=== PATIENT | female | born 1930 | race Caucasian/White ===

== ENCOUNTER → 2016-10-06 | Outpatient (CLI) | payer OTHER ==
[~2016-10-06] MED LIST: ACET-1311 PO; ASCA500 PO; ASPEC81 PO; ATEN-175 PO; ATOR-26 PO; CMD2 PO; CMD25 PO; FLAX SEED PO; HYDC25 PO; TERA1CAP63 PO; VITA100C4 PO
[2016-10-06 12:41] LABS: BASO % 0.4 %; BASO ABS # 0.02 K/uL (0-0.2); COMPLETE YES; EOS % 2.2 %; HEMATOCRIT 36.7 % (37-47); IG% 0.2 %; LYMPH % 28.4 %; LYMPH ABS # 1.43 K/uL (1.2-3.4); MEAN CELL VOLUME 90.2 fL (80-100); MEAN CORPUSCULAR HGB CONC 33.2 g/dl (32-36); MEAN PLATELET VOLUME 10.5 fL (7.4-10.4); MONO % 7.7 %; NEUT % 61.1 %; PLATELET COUNT 146 K/uL (130-400); RED BLOOD COUNT 4.07 M/uL (4.2-5.4); WHITE BLOOD COUNT 5.04 K/uL (4.8-10.8)
[2016-10-06 12:46] LABS: INR 2.4 (0.9-1.1)
[2016-10-06 13:22] LABS: CHOLESTEROL/HDL RATIO 2.4; THYROID STIMULATING HORMONE 1.31 uIu/ml (0.300-4.500)
[2016-10-06 13:24] LABS: ESTIMATED AVERAGE GLUCOSE 128 mg/dl; HA1C FLAG Normal (Normal)
--- NOTE | 2016-10-10 13:23 | CODING QUERY MEDICAL NECESSITY ---
SUPPORTING DIAGNOSIS NEEDED Dr. Devlin, A supporting diagnosis is required for the test/procedure performed on this patient in order for us to be reimbursed by the patient's insurance. Please provide a supporting diagnosis for the following test/procedure listed below next to the test name along with your signature. *If there is no additional diagnosis for this patient that would support the following test/procedure please document that below next to the test/procedure. Test(s)/Procedure(s) that require a supporting diagnosis: * ([id number]) VITAMIN D ASSAY DIAGNOSIS: DATE OF SERVICE: 10/06/16 Provider Signature: Date: Thank you Jessee Cordova [facility] Information Management Once completed, please kindly fax back to [phone] For questions please call [phone]
== END | disposition home or self-care (01) ==
LOC: C.LABPVFM 08:39
PROVIDERS: ATTEND Family Medicine
DX: Z00.00 Encounter for general adult medical examination without abnormal findings (principal); I10 Essential (primary) hypertension; R73.01 Impaired fasting glucose; I25.10 Atherosclerotic heart disease of native coronary artery without angina pectoris; I66.9 Occlusion and stenosis of unspecified cerebral artery; E55.9 Vitamin D deficiency, unspecified

== ENCOUNTER → 2017-04-20 | Outpatient (CLI) | payer OTHER ==
[2017-04-20 13:15] LABS: ALT/SGPT 35 U/L (12-78); AST/SGOT 27 U/L (15-37); BLOOD UREA NITROGEN 24 mg/dl (7-18); BUN/CREATININE RATIO 24.7 (10-20); CALCIUM 8.9 mg/dl (8.5-10.1); CARBON DIOXIDE 27 mmol/L (21-32); CHLORIDE 105 mmol/L (98-107); CREATININE 0.97 mg/dl (0.60-1.20); GLUCOSE 93 mg/dl (70-99); POTASSIUM 4.1 mmol/L (3.5-5.1); SODIUM 140 mmol/L (136-145)
[2017-04-20 13:18] LABS: ALB/GLOB RATIO 1.2 (0.9-2); ALKALINE PHOSPHATASE 84 U/L (45-117); CHOLESTEROL 127 mg/dl (0-200); CHOLESTEROL/HDL RATIO 2.4; HDL CHOLESTEROL 53 mg/dl; LDL CHOLESTEROL CALCULATED 49 mg/dl; TRIGLYCERIDES 125 mg/dl (0-150); VERY LOW DENSITY LIPOPROT CALC 25 mg/dl
[2017-04-20 13:34] LABS: ESTIMATED AVERAGE GLUCOSE 128 mg/dl; HA1C FLAG Normal (Normal)
--- NOTE | 2017-04-24 13:57 | CODING QUERY MEDICAL NECESSITY ---
SUPPORTING DIAGNOSIS NEEDED A supporting diagnosis is required for the test/procedure performed on this patient in order for us to be reimbursed by the patient's insurance. Please provide a supporting diagnosis for the following test/procedure listed below next to the test name along with your signature. *If there is no additional diagnosis for this patient that would support the following test/procedure please document that below next to the test/procedure. Test(s)/Procedure(s) that require a supporting diagnosis: * HEMOGLOBIN A1C DIAGNOSIS: Provider Signature: Date: Thank you [facility] Information Management Once completed, please kindly fax back to [phone] For questions please call [phone]
== END | disposition home or self-care (01) ==
LOC: C.LABPVFM 08:16
PROVIDERS: ATTEND Family Medicine
DX: N30.10 Interstitial cystitis (chronic) without hematuria (principal); I10 Essential (primary) hypertension; E78.00 Pure hypercholesterolemia, unspecified; I73.9 Peripheral vascular disease, unspecified; I25.10 Atherosclerotic heart disease of native coronary artery without angina pectoris; R73.01 Impaired fasting glucose

== ENCOUNTER → 2017-09-08 | Outpatient (CLI) | payer OTHER ==
[2017-09-08 17:48] LABS: ALBUMIN 3.8 gm/dl (3.4-5.0); ALT/SGPT 27 U/L (12-78); AST/SGOT 24 U/L (15-37); BLOOD UREA NITROGEN 29 mg/dl (7-18); CALCIUM 8.7 mg/dl (8.5-10.1); CARBON DIOXIDE 26 mmol/L (21-32); CREATININE 1.09 mg/dl (0.60-1.20); GLUCOSE 99 mg/dl (70-99); SODIUM 138 mmol/L (136-145)
[2017-09-08 17:50] LABS: ALKALINE PHOSPHATASE 101 U/L (45-117)
== END | disposition home or self-care (01) ==
LOC: C.LABPVFM 14:24
PROVIDERS: ATTEND Family Medicine
DX: I10 Essential (primary) hypertension (principal); E78.00 Pure hypercholesterolemia, unspecified; R73.01 Impaired fasting glucose; Z79.01 Long term (current) use of anticoagulants; Z51.81 Encounter for therapeutic drug level monitoring; I73.9 Peripheral vascular disease, unspecified

== ENCOUNTER → 2017-10-20 | Outpatient (CLI) | payer OTHER ==
[2017-10-20 13:14] LABS: BLOOD UREA NITROGEN 23 mg/dl (7-18); CALCIUM 8.8 mg/dl (8.5-10.1); CARBON DIOXIDE 28 mmol/L (21-32); CREATININE 0.99 mg/dl (0.60-1.20); GLUCOSE 100 mg/dl (70-99); POTASSIUM 3.8 mmol/L (3.5-5.1); SODIUM 140 mmol/L (136-145)
[2017-10-20 13:35] LABS: HEMOGLOBIN A1C 6.1 % (4.5-5.6)
== END | disposition home or self-care (01) ==
LOC: C.LABPVFM 08:49
PROVIDERS: ATTEND Family Medicine
DX: I10 Essential (primary) hypertension (principal); R73.01 Impaired fasting glucose; E55.9 Vitamin D deficiency, unspecified

== ENCOUNTER → 2017-10-30 | Outpatient (CLI) | payer OTHER ==
[2017-10-30 12:40] LABS: INR 1.3 (0.9-1.1)
== END ==
LOC: C.LABPVFM 08:46
PROVIDERS: ATTEND Family Medicine
DX: E55.9 Vitamin D deficiency, unspecified (principal)

== ENCOUNTER → 2018-04-20 | Outpatient (CLI) | payer OTHER ==
[2018-04-20 12:55] LABS: HEMATOCRIT 38.3 % (37-47); HEMOGLOBIN 12.6 g/dL (12.0-16.0); MEAN CELL VOLUME 92.1 fL (80-100); MEAN CORPUSCULAR HEMOGLOBIN 30.3 pg (25-34); MEAN CORPUSCULAR HGB CONC 32.9 g/dl (32-36); MEAN PLATELET VOLUME 10.3 fL (7.4-10.4); PLATELET COUNT 141 K/uL (130-400); RED CELL DISTRIBUTION WIDTH CV 13.4 % (11.5-14.5); RED CELL DISTRIBUTION WIDTH SD 44.7 fL (36.4-46.3); WHITE BLOOD COUNT 5.88 K/uL (4.8-10.8)
[2018-04-20 13:54] LABS: ALKALINE PHOSPHATASE 80 U/L (45-117); ALT/SGPT 29 U/L (12-78); AST/SGOT 27 U/L (15-37); BLOOD UREA NITROGEN 30 mg/dl (7-18); CALCIUM 9.2 mg/dl (8.5-10.1); CARBON DIOXIDE 26 mmol/L (21-32); CHOLESTEROL 113 mg/dl (0-200); CREATININE 1.22 mg/dl (0.60-1.20); GLUCOSE 100 mg/dl (70-99); LDL CHOLESTEROL CALCULATED 49 mg/dl; POTASSIUM 4.1 mmol/L (3.5-5.1); SODIUM 140 mmol/L (136-145); TOTAL PROTEIN 7.1 gm/dl (6.4-8.2)
== END | disposition home or self-care (01) ==
LOC: C.LABPVFM 08:19
PROVIDERS: ATTEND Family Medicine
DX: E55.9 Vitamin D deficiency, unspecified (principal); E78.00 Pure hypercholesterolemia, unspecified; Z79.01 Long term (current) use of anticoagulants

== ENCOUNTER 2019-05-04 20:03 | Inpatient (IN) ==
[2019-05-04] MEDS ORDERED: LEVALBUTEROL HCL 1.25 MG/3 ML NEB NEB STA (21:11)
[2019-05-04] MEDS ORDERED: SODIUM CHLORIDE 0.9% 1000ML 1,000 ML IV SCH (21:15)
[2019-05-04 21:37] LABS: Basophils # (auto) 0.02 K/uL (0-0.2); Basophils % (auto) 0.2 %; Eosinophils # (auto) 0.03 K/uL (0-0.5); Eosinophils % (auto) 0.3 %; Hematocrit (blood only) 32.8 % (37-47); Immature Granulocytes # (auto) 0.01 K/uL (0.00-0.02); Immature Granulocytes % (auto) 0.1 %; Lymphocytes # (auto) 0.77 K/uL (1.2-3.4); Lymphocytes % (auto) 8.5 %; Mean Corpuscular Hgb Conc 33.5 g/dL (32-36); Mean Corpuscular Volume 90.1 fL (80-100); Mean Platelet Volume 9.4 fL (7.4-10.4); Monocytes # (auto) 0.81 K/uL (0.11-0.59); Monocytes % (auto) 8.9 %; Neutrophils # (auto) 7.46 K/uL (1.4-6.5); Platelet Count 141 K/uL (130-400); RDW Standard Deviation 42.4 fL (36.4-46.3); Red Blood Count 3.64 M/uL (4.2-5.4)
[2019-05-04 21:53] LABS: Albumin Level 3.4 gm/dl (3.4-5.0); BUN Creatinine Ratio 24.8 (10-20); Calcium 9.1 mg/dl (8.5-10.1); Creatinine Clr Calc Pharmacy 25.3 ml/min; Est GFR (African American) 42.1; Est GFR (Non-African American) 36.3; Potassium 3.9 mmol/L (3.5-5.1)
--- NOTE | 2019-05-04 21:55 | XRay Report ---
XR chest 1V portable CLINICAL HISTORY: weakness dyspnea COMPARISON STUDY: No previous studies for comparison. FINDINGS: Findings consistent with developing congestive failure. Mild cardiomegaly. Diaphragms are s mooth. IMPRESSION: Developing components of congestive heart failure. The above report was generated using voice recognition software. It may contain grammatical, syntax or spelling errors. Electronically signed by: Salazar DeJ esus M.D. 05/04/2019 9:54 PM
[2019-05-04 22:04] LABS: Bilirubin,Total 0.9 mg/dl (0.2-1); Globulin 3.4 gm/dl (2.5-4.0); Total Protein 6.8 gm/dl (6.4-8.2); Troponin I 0.02 ng/ml (0-0.045)
[2019-05-04] MEDS ORDERED: IOVERSOL 100ml IV PRN (22:36)
[2019-05-04 22:45] LABS: Appearance Urine Cloudy (Clear); Bacteria Urine Automated 2+ (Negative); Bilirubin Urine Negative (Negative); Blood Urine 2+ (Negative); Cast Urine Automated 0 /lpf (0-5); Color Urine Yellow; Epithelial Cell Urine Auto 0-5 /lpf (0-5); Glucose Urine UA Negative (Negative); Ketones Urine Negative (Negative); Leukocyte Esterase Urine 3+ (Negative); Nitrite Urine Positive (Negative); Protein Urine Trace (Negative); Specific Gravity Urine 1.014 (1.000-1.030); Urobilinogen Urine Negative (Negative); WBC Urine Automated >30 /hpf (0-5)
[2019-05-04] MEDS ORDERED: cefTRIAXone SODIUM 2,000 MG/70 ML BAG IV STA (22:57)
--- NOTE | 2019-05-04 22:57 | CT Scan Report ---
CT head/brain wo con CT DOSE: HISTORY: Mental status change Pt c/o gen weakness TECHNIQUE: Multiaxial CT images of the head were performed without the use of intravenous contrast. A dose lowering technique was utilized adhering to the principles of ALARA. Comparison: None. Findings: The paranasal sinuses and mastoid air cells are clear. The calvarium and skull base are int act. The ventricles and sulci are within normal limits. There is no mass, hematoma, midline shift, or acute infarct. Impression: No acute intracranial abnormality. The above report was generated using voice recognition software. It may contain grammatical, syntax or spelling errors. Electronically signed by: Salazar De Jesus M.D. 05/04/2019 10:55 PM
--- NOTE | 2019-05-04 23:00 | CT Scan Report ---
CT abd pelvis IV con only CT DOSE: 251.80 mGy.cm HISTORY: Pain Pt c/o b/l leg and abd pain TECHNIQUE: Multiaxial CT images of the abdomen and pelvis were performed following the use of intrave nous contrast. A dose lowering technique was utilized adhering to the principles of ALARA. COMPARISON STUDY: None. FINDINGS: Prominent bibasilar pulmonary vasculature and interstitial change. Liver spleen and pancrea s are unremarkable. Kidneys enhance uniformly. No evidence for renal hydronephrosis. Nonobstructive bowel pattern. Considerable atherosclerotic change of the abdominal and pelvic arteria l vasculature. Findings of mild chronic sigmoid diverticulosis. No evidence for acute diverticulitis. The bladder is midline. As on those made of several gallstones within the gallbladder lumen. IMPRESSION: 1. Chronic sigmoid diverticulosis. 2. Gallstones. 3. Otherwise negative abdomen and pelvis. 4. Prominent basilar pulmonary vasculature and interstitial change. The above report was generated using voice recognition software. It may contain grammatical, syntax or spelling errors. Electronically signed by: Salazar De Jesus M.D. 05/04/2019 10:59 PM
--- NOTE | 2019-05-04 23:59 | Emergency Department Note ---
Entered by Pat Gomez acting as a scribe for Leander Babb MD History of Present Illness General Chief complaint: Weakness Time Seen by Provider: 05/04/19 20:56 Source: patient and family Mode of arrival: EMS History of Present Illness Provider complaint: weakness Onset (ago): hour(s) 3 Location: lower extremity (both legs ) Pain Consistency: + other (episode ) Maximum Pain Intensity: 0 Quality: + other (shaky) Associated symptoms: + weakness and + other (pain in pelvis ) The patient is an 89 year old female presents to the ED with complaints of an episode of weakness that began 3 hours ago. The patient states her legs feel weak and she feels pain in her pelvis region. The patient states that her legs feel shaky. The patients family member states that she was going to take a shower and had to sit down. She states that another family member checked on her and discovered that she could not stand so they called EMS. She states that when they tried to bring the patent to the ED earlier but she was unbalanced. The patient states that she has a history of UTIs. The patient states that she never uses oxygen unless she is in the ED. The patient states that she had a vein put in leg because she had sores on her foot. She states that she had open heart surgery. Home Medications Home Medications Medication Instructions Recorded Confirmed Type atorvastatin 80 mg tablet 80 mg PO DAILY #90 tab 02/18/19 05/04/19 Rx acetaminophen 500 mg capsule 500 mg PO UD PRN cap 03/02/19 05/04/19 History conjugated estrogens 0.625 mg/gram 1 applic PV .2-3 NIGHTS WEEK #1 gm 03/02/19 05/04/19 History vaginal cream aspirin 325 mg tablet 325 mg PO DAILY #30 tab 04/18/19 05/04/19 History atenolol 100 mg tablet 100 mg PO QAM tab 04/18/19 05/04/19 History calcium 600 mg-D3 800 unit-mag11 1 tab PO DAILY 04/18/19 05/04/19 History 50 sv-jlba-owcpat-naimta-s.borat tablet hydrochlorothiazide 12.5 mg tablet 12.5 mg PO QAM tab 04/18/19 05/04/19 History mirabegron ER 50 mg 50 mg PO DAILY #90 tab 04/18/19 05/04/19 History tablet,extended release 24 hr terazosin 10 mg capsule 10 mg PO HS cap 04/18/19 05/04/19 History pentosan polysulfate sodium 100 mg PO DAILY 05/04/19 05/04/19 History [Elmiron] Allergies Allergy/AdvReac Type Severity Reaction Status Date / Time No Known Drug Allergies Allergy Unknown Verified 05/04/19 22:52 Past Med/Surg History Medical History Vitamin D deficiency (Chronic) PAD (peripheral artery disease) (Acute) Impaired fasting glucose (Chronic) Hypertension (Chronic) Hypercholesterolemia (Chronic) Chronic interstitial cystitis (Acute) Cerebral embolism (Acute) Carotid atherosclerosis (Chronic) CAD (coronary atherosclerotic disease) (Acute) Family History Other No significant family history Social History Feels Safe at Home: Yes Smoking Status: Never smoker Review of Systems See HPI for pertinent positives & negatives. and A total of 10 systems reviewed and were otherwise negative Physical Exam Vital Signs Vital Signs - 24 hr 05/04/19 20:09 05/04/19 20:11 05/04/19 20:13 Temperature 37.9 C H Temperature Source Oral Sepsis Recent Fever Within 48 Hours Yes Sepsis New/Unexplained Change in Mental Status No Sepsis Action Taken by Nursing No Action Required Pulse Rate 68 71 68 Pulse Rate [Finger] 71 Pulse Rate from SpO2 Sensor 70 73 Respiratory Rate 24 20 24 Respiratory Effort / Characteristics Blood Pressure 154/57 H 154/57 H Blood Pressure [Right Arm] 154/57 H Blood Pressure Mean 89 89 Blood Pressure Mean [Right Arm] 89 Pulse Oximetry 94 89 L 94 Oxygen Delivery Method Nasal Cannula Room Air Nasal Cannula Oxygen Flow Rate 2 2 05/04/19 20:20 05/04/19 20:30 05/04/19 20:40 Temperature Temperature Source Sepsis Recent Fever Within 48 Hours Sepsis New/Unexplained Change in Mental Status Sepsis Action Taken by Nursing Pulse Rate 72 68 62 Pulse Rate [Finger] Pulse Rate from SpO2 Sensor 75 68 70 Respiratory Rate 23 22 23 Respiratory Effort / Characteristics Blood Pressure 139/67 Blood Pressure [Right Arm] Blood Pressure Mean 91 Blood Pressure Mean [Right Arm] Pulse Oximetry 96 95 95 Oxygen Delivery Method Nasal Cannula Nasal Cannula Nasal Cannula Oxygen Flow Rate 2 2 2 05/04/19 20:50 05/04/19 21:00 05/04/19 21:10 Temperature Temperature Source Sepsis Recent Fever Within 48 Hours Sepsis New/Unexplained Change in Mental Status Sepsis Action Taken by Nursing Pulse Rate 69 70 71 Pulse Rate [Finger] Pulse Rate from SpO2 Sensor 73 70 75 Respiratory Rate 22 23 24 Respiratory Effort / Characteristics Blood Pressure 157/62 H Blood Pressure [Right Arm] Blood Pressure Mean 93 Blood Pressure Mean [Right Arm] Pulse Oximetry 92 95 94 Oxygen Delivery Method Nasal Cannula Nasal Cannula Nasal Cannula Oxygen Flow Rate 2 2 2 05/04/19 21:20 05/04/19 21:23 05/04/19 21:30 Temperature Temperature Source Sepsis Recent Fever Within 48 Hours Sepsis New/Unexplained Change in Mental Status Sepsis Action Taken by Nursing Pulse Rate 66 72 Pulse Rate [Finger] 70 Pulse Rate from SpO2 Sensor 66 72 Respiratory Rate 25 H 18 22 Respiratory Effort / Characteristics Non-Labored Spontaneous Blood Pressure 173/64 H Blood Pressure [Right Arm] Blood Pressure Mean 100 Blood Pressure Mean [Right Arm] Pulse Oximetry 95 97 96 Oxygen Delivery Method Nasal Cannula Nasal Cannula Nasal Cannula Oxygen Flow Rate 2 2 2 05/04/19 21:36 05/04/19 21:40 05/04/19 21:50 Temperature Temperature Source Sepsis Recent Fever Within 48 Hours Sepsis New/Unexplained Change in Mental Status Sepsis Action Taken by Nursing Pulse Rate 68 82 Pulse Rate [Finger] 71 Pulse Rate from SpO2 Sensor 68 73 Respiratory Rate 21 21 19 Respiratory Effort / Characteristics Blood Pressure Blood Pressure [Right Arm] 173/64 H Blood Pressure Mean Blood Pressure Mean [Right Arm] 100 Pulse Oximetry 95 96 96 Oxygen Delivery Method Nasal Cannula Nasal Cannula Nasal Cannula Oxygen Flow Rate 2 2 2 05/04/19 22:00 05/04/19 22:10 05/04/19 22:20 Temperature Temperature Source Sepsis Recent Fever Within 48 Hours Sepsis New/Unexplained Change in Mental Status Sepsis Action Taken by Nursing Pulse Rate 73 72 74 Pulse Rate [Finger] Pulse Rate from SpO2 Sensor 74 73 67 Respiratory Rate 20 20 21 Respiratory Effort / Characteristics Blood Pressure 168/65 H Blood Pressure [Right Arm] Blood Pressure Mean 99 Blood Pressure Mean [Right Arm] Pulse Oximetry 95 95 95 Oxygen Delivery Method Nasal Cannula Nasal Cannula Nasal Cannula Oxygen Flow Rate 2 2 2 05/04/19 22:30 05/04/19 22:51 05/04/19 23:00 Temperature Temperature Source Sepsis Recent Fever Within 48 Hours Sepsis New/Unexplained Change in Mental Status Sepsis Action Taken by Nursing Pulse Rate 77 80 71 Pulse Rate [Finger] Pulse Rate from SpO2 Sensor 71 80 71 Respiratory Rate 19 25 H 20 Respiratory Effort / Characteristics Blood Pressure 176/75 H Blood Pressure [Right Arm] Blood Pressure Mean 108 Blood Pressure Mean [Right Arm] Pulse Oximetry 97 95 95 Oxygen Delivery Method Nasal Cannula Nasal Cannula Nasal Cannula Oxygen Flow Rate 2 2 2 05/04/19 23:10 05/04/19 23:14 05/04/19 23:20 Temperature Temperature Source Sepsis Recent Fever Within 48 Hours Sepsis New/Unexplained Change in Mental Status Sepsis Action Taken by Nursing Pulse Rate 69 70 74 Pulse Rate [Finger] Pulse Rate from SpO2 Sensor 71 63 75 Respiratory Rate 20 20 22 Respiratory Effort / Characteristics Blood Pressure 175/63 H Blood Pressure [Right Arm] Blood Pressure Mean 100 Blood Pressure Mean [Right Arm] Pulse Oximetry 95 96 96 Oxygen Delivery Method Nasal Cannula Nasal Cannula Nasal Cannula Oxygen Flow Rate 2 2 2 05/04/19 23:30 05/04/19 23:40 Temperature Temperature Source Sepsis Recent Fever Within 48 Hours Sepsis New/Unexplained Change in Mental Status Sepsis Action Taken by Nursing Pulse Rate 75 74 Pulse Rate [Finger] Pulse Rate from SpO2 Sensor 70 73 Respiratory Rate 22 18 Respiratory Effort / Characteristics Blood Pressure 161/64 H Blood Pressure [Right Arm] Blood Pressure Mean 96 Blood Pressure Mean [Right Arm] Pulse Oximetry 94 96 Oxygen Delivery Method Nasal Cannula Nasal Cannula Oxygen Flow Rate 2 2 GENERAL: Awake, alert, well-appearing, in no acute distress HENT: Normocephalic, atraumatic. Oropharynx unremarkable. EYES: Normal conjunctiva. Sclera non-icteric. NECK: Supple. No nuchal rigidity. FROM. No JVD. RESPIRATORY: Clear to auscultation. CARDIAC: Regular rate, normal rhythm. Extremities warm and well perfused. Pulses equal. ABDOMEN: Soft, non-distended. No tenderness to palpation. No rebound or guarding. No masses. RECTAL: Deferred. MUSCULOSKELETAL: Chest examination reveals no tenderness. The back is symmetrical on inspection without obvious abnormality. There is no CVA tenderness to palpation. No joint edema. LOWER EXTREMITIES: Calves are equal size bilaterally and non-tender. No edema. No discoloration. NEURO: Normal sensorium. No sensory or motor deficits noted. SKIN: No rash or jaundice noted. Course 2104: Past medical records reviewed. The patient was evaluated in room B10. A complete history and physical exam was performed. Administered Medications Ioversol (Optiray 320 100ml) 93 ml IV ONCE PRN PRN Reason: Interaction Checking Stop: 05/08/19 22:35 Last Admin: 05/04/19 22:36 Dose: 93 ml Documented by: [id number] Discontinued Medications Sodium Chloride (Nss 1000ml) 1,000 mls @ 999 mls/hr IV .Q1H1M [id number] Stop: 05/04/19 22:15 Last Infusion: 05/04/19 22:38 Dose: 0 mls/hr Documented by: [id number] Admin: 05/04/19 21:37 Dose: 999 mls/hr Documented by: [id number] Ceftriaxone Sodium (Rocephin) 2,000 mg in 70 mls @ 140 mls/hr IV NOW STA Stop: 05/04/19 23:26 Last Infusion: 05/04/19 23:45 Dose: 0 mls/hr Documented by: [id number] Admin: 05/04/19 23:13 Dose: 140 mls/hr Documented by: [id number] Levalbuterol HCl (Xopenex 1.25mg/3ml Neb) 1.25 mg NEB NOW STA Stop: 05/04/19 21:12 Last Admin: 05/04/19 21:22 Dose: 1.25 mg Documented by: [id number] Medical Decision Making Differential Diagnosis Differential Diagnosis includes but is not limited to dehydration, stroke, anemia, hypoglycemia, hyponatremia, hypernatremia, urinary tract infection, pneumonia, bronchitis, sepsis, gastroenteritis, additional abdominal pathology, metabolic abnormalities and infections. Medical Records Attestation: I reviewed the patient's medical records. Home Medications Current Medication List: was personally reviewed by me Laboratory Data Attestation: I reviewed the patient's lab results. Result diagrams: 05/04/19 21:30 05/04/19 21:30 Lab Results 05/04/19 05/04/19 05/04/19 Range/Units 21:30 21:30 22:35 WBC 9.10 (4.8-10.8) K/uL RBC 3.64 L (4.2-5.4) M/uL Hgb 11.0 L (12.0-16.0) g/dL Hct 32.8 L (37-47) % MCV 90.1 (80-100) fL MCH 30.2 (25-34) pg MCHC 33.5 (32-36) g/dL RDW Std Deviation 42.4 (36.4-46.3) fL RDW Coeff of Uriel 13.0 (11.5-14.5) % Plt Count 141 (130-400) K/uL MPV 9.4 (7.4-10.4) fL Immature Gran % (Auto) 0.1 % Neut % (Auto) 82.0 % Lymph % (Auto) 8.5 % Sully % (Auto) 8.9 % Eos % (Auto) 0.3 % Baso % (Auto) 0.2 % Immature Gran # (Auto) 0.01 (0.00-0.02) K/uL Neut # (Auto) 7.46 H (1.4-6.5) K/uL Lymph # (Auto) 0.77 L (1.2-3.4) K/uL Sully # (Auto) 0.81 H (0.11-0.59) K/uL Eos # (Auto) 0.03 (0-0.5) K/uL Baso # (Auto) 0.02 (0-0.2) K/uL Sodium 137 (136-145) mmol/L Potassium 3.9 (3.5-5.1) mmol/L Chloride 103 (98-107) mmol/L Carbon Dioxide 27 (21-32) mmol/L Anion Gap 7.0 (3-11) BUN 32 H (7-18) mg/dl Creatinine 1.30 H (0.6-1.2) mg/dl Est Cr Clr Drug Dosing 25.3 ml/min Est GFR ( Amer) 42.1 Est GFR (Non-Af Amer) 36.3 BUN/Creatinine Ratio 24.8 H (10-20) Glucose 134 H (70-99) mg/dl Calcium 9.1 (8.5-10.1) mg/dl Total Bilirubin 0.9 (0.2-1) mg/dl AST 28 (15-37) U/L ALT 22 (12-78) U/L Alkaline Phosphatase 60 (45-117) U/L Total Creatine Kinase 495 H (26-192) U/L Troponin I 0.020 (0-0.045) ng/ml NT-Pro-B Natriuret Pep 5961 H (0-1800) pg/ml Total Protein 6.8 (6.4-8.2) gm/dl Albumin 3.4 (3.4-5.0) gm/dl Globulin 3.4 (2.5-4.0) gm/dl Albumin/Globulin Ratio 1.0 (0.9-2) TSH 1.170 (0.300-4.500) uIu/ml Urine Color Yellow Urine Appearance Cloudy A (Clear) Urine pH 6.0 (4.5-7.5) Ur Specific [place] 1.014 (1.000-1.030) Urine Protein Trace H (Negative) Urine Glucose (UA) Negative (Negative) Urine Ketones Negative (Negative) Urine Blood 2+ H (Negative) Urine Nitrite Positive A (Negative) Urine Bilirubin Negative (Negative) Urine Urobilinogen Negative (Negative) Ur Leukocyte Esterase 3+ H (Negative) Urine WBC (Auto) >30 H (0-5) /hpf Urine RBC (Auto) 5-10 H (0-4) /hpf U Hyaline Cast (Auto) 0 (0-5) /lpf U Epithel Cells (Auto) 0-5 (0-5) /lpf Urine Bacteria (Auto) 2+ H (Negative) Imaging Data Radiologist's Impression: Radiology results as stated below per my review and the radiologist's interpretation: XR chest 1V portable CLINICAL HISTORY: weakness dyspnea COMPARISON STUDY: No previous studies for comparison. FINDINGS: Findings consistent with developing congestive failure. Mild cardiomegaly. Diaphragms are smooth. IMPRESSION: Developing components of congestive heart failure. The above report was generated using voice recognition software. It may contain grammatical, syntax or spelling errors. Electronically signed by: Salazar De Jesus M.D. 05/04/2019 9:54 PM T head/brain wo con CT DOSE: HISTORY: Mental status change Pt c/o gen weakness TECHNIQUE: Multiaxial CT images of the head were performed without the use of intravenous contrast. A dose lowering technique was utilized adhering to the principles of ALARA. Comparison: None. Findings: The paranasal sinuses and mastoid air cells are clear. The calvarium and skull base are intact. The ventricles and sulci are within normal limits. There is no mass, hematoma, midline shift, or acute infarct. Impression: No acute intracranial abnormality. The above report was generated using voice recognition software. It may contain grammatical, syntax or spelling errors. Electronically signed by: Salazar De Jesus M.D. 05/04/2019 10:55 PM Dictated: 05/04/192253 Transcribed: 05/04/192253 [place], [place] [phone] CT Scan Report Patient: LUIS ESTEVES Date: 05/04/19 MR#: [id number] [address] Acct ID:[id number]: Date: 1930City Zip: [place] [address] Age: 89Location: ED Sex: F Room/Bed: Att Phy: Diagnosis: WEAKNESS Jo-Ann Phy: Milli Pozo MDService Date: 05/04/19 Fam Phy: Interpreting Phy: Salazar De Jesus MD Admit Phy: Ordering Phy: Leander Babb MD cc: ~ CT abd pelvis IV con only CT DOSE: 251.80 mGy.cm HISTORY: Pain Pt c/o b/l leg and abd pain TECHNIQUE: Multiaxial CT images of the abdomen and pelvis were performed following the use of intravenous contrast. A dose lowering technique was utilized adhering to the principles of ALARA. COMPARISON STUDY: None. FINDINGS: Prominent bibasilar pulmonary vasculature and interstitial change. Liver spleen and pancreas are unremarkable. Kidneys enhance uniformly. No evidence for renal hydronephrosis. Nonobstructive bowel pattern. Considerable atherosclerotic change of the abdominal and pelvic arterial vasculature. Findings of mild chronic sigmoid diverticulosis. No evidence for acute diverticulitis. The bladder is midline. As on those made of several gallstones within the gallbladder lumen. IMPRESSION: 1. Chronic sigmoid diverticulosis. 2. Gallstones. 3. Otherwise negative abdomen and pelvis. 4. Prominent basilar pulmonary vasculature and interstitial change. The above report was generated using voice recognition software. It may contain grammatical, syntax or spelling errors. Electronically signed by: Salazar De Jesus M.D. 05/04/2019 10:59 PM Dictated: 05/04/192254 Transcribed: 05/04/192254 ECG Data Attestation: I personally reviewed and interpreted this ECG as follows: Indication: weakness Rate (beats per minute): 72 Rhythm: sinus rhythm Findings: no ST depression, no ST elevation and no acute ischemic change Blood Pressure Blood Pressure Findings: Elevated blood pressure MDM Narrative This is an 89-year-old female who presents emergency department complaining of generalized weakness. The patient appears to have a urinary tract infection per her laboratory work. Her chest x-ray is concerning for volume overload. She was also sent for CAT scan of the head as well as abdomen and pelvis. This does not show any acute process. Patient was started on IV Rocephin and given a normal saline bolus. Because of her multiple comorbidities I did discuss case with the hospitalist service who agreed to admit the patient. Patient and family were in agreement with the treatment plan Impression & Plan Dehydration, Weakness, Acute UTI Discharge Plan Visit Data Chief Complaint: Weakness ED Provider: Leander Babb Discharge Problem: Dehydration, Weakness, Acute UTI Forms Stand Alone Forms: My [facility] Prescriptions Prescriptions: No Action atorvastatin 80 mg tablet 80 mg PO DAILY Qty: 90 RF: 1 acetaminophen 500 mg capsule 500 mg PO UD PRN (Reason: Pain) RF: 0 Premarin 0.625 mg/gram cream 1 applic PV .2-3 NIGHTS WEEK Qty: 1 RF: 0 aspirin 325 mg tablet 325 mg PO DAILY Qty: 30 RF: 0 atenolol 100 mg tablet 100 mg PO QAM RF: 0 hydrochlorothiazide 12.5 mg tablet 12.5 mg PO QAM RF: 0 mirabegron 50 mg tablet extended release 24 hr 50 mg PO DAILY Qty: 90 RF: 0 terazosin 10 mg capsule 10 mg PO HS RF: 0 Caltrate 600-D Plus Minerals 600 mg calcium- 800 unit-50 mg tablet 1 tab PO DAILY RF: 0 Elmiron 100 mg Capsule 100 mg PO DAILY RF: 0 The scribe's documentation has been prepared under my direction and personally reviewed by me in its entirety. I confirm that the note above accurately reflects all work, treatment, procedures, and medical decision making performed by me.
--- NOTE | 2019-05-05 00:59 | History & Physical Report ---
Date of Service May 05, 2019 Assessment & Plan (1) Bilateral leg weakness: 89-year-old female was admitted on 05 May 2019 for transient bilateral lower extremity weakness and present hypoxia. Bilateral lower extremity weakness: Reportedly relatively quick onset around dinnertime on evening of admit. Presently has completely resolved. Patient denies concurrent focal neuro symptoms suggestive of a TIA. Denies current urinary symptoms and has a non-tender abdomen. Question of a UTI causing this, though all these labs may be more consistent with her chronic interstitial cystitis. - In ED, temp 37.9, not tachycardic or tachypneic, but moderately hypertensive. WBC 9. Troponin 0.02. EKG NSR 72 with PACs. TSH normal. UA positive for nitrites, WBCs, and less so RBC. Urine culture sent. CT head without acute abnormality. CT a/p IV contrast only noted no acute findings. - In ED, treated with 1 L NS IVF and ceftriaxone 2 gm x 1. - As a precaution, will continue on ceftriaxone 1 gm daily while pending urine culture results. Hypoxia: Patient denies any baseline CP or SOB, both with exertion and at rest, or any known underlying pulmonary disease. In the ED, however, desats to 89% on room air. Does not seem like acute CHF. 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 - ED work-up included SpO2 around 95% on 2 L nasal cannula. BNP 5961. pCXR read as developing components of CHF. Treated with a single round of Xopenex. - Will get a non-contrast CT of her chest (given her prior contrast from earlier CT scans). Consult pulmonology as well. Keep on nasal cannula oxygen for goal SpO2 over 92%. Anemia: Admit hemoglobin 11.0. Only comparison is 12.6 earlier in the month. No reports of bleeding. - Recheck in the morning. Elevated creatinine: Admit creatinine 1.3, BUN 32. Only comparison 1.2 earlier in the month. Perhaps a bit pre-renal. Provided some IVF in the ED. - Will maintain on small amount of IVF and recheck in a.m. Elevated creatinine kinase: Admit CK 495. No noted falls, immobility, but she does get an occasional "charley horse" in her legs which is not new. - Given IVF. Recheck in a.m. Incidental CT a/p findings (see full report): - Chronic sigmoid diverticulosis. - Gallstones. - Prominent basilar pulmonary vasculature and interstitial change. Ongoing medical issues: - Hypertension, hyperlipidemia, CAD, carotid atherosclerosis, lower extremity PAD: Continue home atenolol, atorvastatin, hydrochlorothiazide, and aspirin. Patient was briefly seen on Coumadin but says she "got tired of it". No mention of need for Coumadin in last available outpatient medical record. - Impaired fasting glucose: Last HbA1c was 6.1 in April 2019. Admit glucose 134. Will recheck with morning BMP. - Vitamin D deficiency: Continue home Caltrate with vitamin D. - Chronic interstitial cystitis: Continue home Elmiron, terazosin, and mirabegron ER. Code status: Full code. Diet: Heart healthy. DVT prophy: Lovenox. PT/OT: Deferred. Disbo: Admit to MedSurg telemetry. (2) Hypoxia: (3) Anemia: (4) Elevated serum creatinine: (5) Elevated creatine kinase: (6) Diverticulosis: (7) Gallstones: (8) Hypertension: (9) Hypercholesterolemia: (10) CAD (coronary atherosclerotic disease): (11) Carotid atherosclerosis: (12) PAD (peripheral artery disease): (13) Impaired fasting glucose: (14) Vitamin D deficiency: (15) Chronic interstitial cystitis: History of Present Illness Primary Care Provider: Milli Pozo MD 89-year-old female presents with her and other family members this evening due to an episode of transient weakness. Patient states that she had a completely normal morning without any symptoms. Around dinnertime she acutely felt like her legs were weak and that she had some discomfort around her pelvis. Her family members went to check on her and noted that she was not able to stand, so they called EMS. Patient says she never fell down, felt dizzy, had a headache or lightheadedness, or had any difficulty with other motor function such as arm movement or speaking or swallowing. During this H&P, patient stated that she had a "charley horse" in her right upper leg but that she gets those frequently. By the end of the exam, this had resolved. At present, she says her leg weakness has completely resolved. She says she feels like she is back at her baseline, specifically denying any acute pains / weakness / discomfort anywhere. On review of systems, patient says that her mouth feels a little dry but that she does try to get enough fluids throughout the day. Recent fevers or feeling of illness, nausea or vomiting or diarrhea, or any difficulty breathing. When asked why she needs oxygen at present, she says she is unsure and that she has no history of any known pulmonary disease. 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 She denies any chest pain or shortness of breath at rest or with exertion, including walking upstairs. She has a known history of chronic interstitial cystitis for which she takes routine medications. She says her only complaint is that she will often have to get up to urinate 3-4 times per night but this is nothing new. She denies any dysuria, no hematuria, or present pelvic discomfort/pain. - Past medical history includes hypertension, hyperlipidemia, CAD, carotid atherosclerosis, vitamin D deficiency, lower extremity peripheral artery disease, chronic interstitial cystitis, cerebral embolism, arthritis, asymptomatic cholelithiasis. - Past surgical history includes (per record) aorto-coronary bypass. Patient states she also had vascular surgery to her left leg. - Social history includes never smoking. Denies alcohol use. Lives at home with her with family nearby. 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 Allergies Allergy/AdvReac Type Severity Reaction Status Date / Time No Known Drug Allergies Allergy Unknown Verified 05/04/19 22:52 Home Medications Home Medications Medication Instructions Recorded Confirmed Type atorvastatin 80 mg tablet 80 mg PO DAILY #90 tab 02/18/19 05/04/19 Rx acetaminophen 500 mg capsule 500 mg PO UD PRN cap 03/02/19 05/04/19 History conjugated estrogens 0.625 mg/gram 1 applic PV .2-3 NIGHTS WEEK #1 gm 03/02/19 05/04/19 History vaginal cream aspirin 325 mg tablet 325 mg PO DAILY #30 tab 04/18/19 05/04/19 History atenolol 100 mg tablet 100 mg PO QAM tab 04/18/19 05/04/19 History calcium 600 mg-D3 800 unit-mag11 1 tab PO DAILY 04/18/19 05/04/19 History 50 xf-xzsu-pubkzv-namita-s.borat tablet hydrochlorothiazide 12.5 mg tablet 12.5 mg PO QAM tab 04/18/19 05/04/19 History mirabegron ER 50 mg 50 mg PO DAILY #90 tab 04/18/19 05/04/19 History tablet,extended release 24 hr terazosin 10 mg capsule 10 mg PO HS cap 04/18/19 05/04/19 History pentosan polysulfate sodium 100 mg PO DAILY 05/04/19 05/04/19 History [Elmiron] Past Med/Surg History Medical History Vitamin D deficiency (Chronic) PAD (peripheral artery disease) (Acute) Impaired fasting glucose (Chronic) Hypertension (Chronic) Hypercholesterolemia (Chronic) Chronic interstitial cystitis (Acute) Cerebral embolism (Acute) Carotid atherosclerosis (Chronic) CAD (coronary atherosclerotic disease) (Acute) Family History Other No significant family history Social History Preferred Language: Kinyarwanda Communication Ability: Effective Beaver Trapper Required: No Beliefs That Will Affect Care: None Current Living Situation: Spouse Current Living Situation Comment: [place] with spouse Other Information That Helps Us Care for You: No Feels Safe at Home: Yes Safety Concerns: Feels Safe At This Time Smoking Status: Never smoker Do You Dip or Chew Tobacco: No ; Second Hand Exposure: No ; Tobacco Cessation Education Requested by Patient: No Hx Alcohol Use: No Hx Substance Use: No Review of Systems Review of Systems: Constitutional: Denies fevers, chills. Eyes: Denies any visual loss or diplopia ENT: Denies any ear/nose/throat pain or difficulty speaking or swallowing Respiratory: Denies any dyspnea, cough, hemoptysis Cardiovascular: Denies any chest pain or feeling of edema Gastrointestinal: Denies any abdominal pain, nausea/vomiting/diarrhea Musculoskeletal: Positive transient bilateral lower extremity weakness, now resolved. Denies difficulty with extremity movement or distal sensation deficits. Skin: Denies any known acute rashes or lesions Neuro: Denies any headache, blurry vision, or difficulties with speech or swallow. Hematologic: Denies any easy bleeding or bruising Physical Exam Physical Exam: GENERAL: Awake, alert, well-appearing and quite feisty, speaking in full sentences easily, in no acute distress HENT: Normocephalic, atraumatic. Oropharynx mildly dry. EYES: Normal conjunctiva. Sclera non-icteric. NECK: Inspection normal. Supple and full ROM. No nuchal rigidity. CARDIAC: +S1S2 RRR, no murmurs. RESPIRATORY: Clear to auscultation. No wheezes or rales. Normal respiratory effort. Nasal cannula oxygen in place. GI: +BS, soft, non-distended. No tenderness to palpation. No rebound or guarding. EXTREMITIES: No pedal edema or calf tenderness. Moving all extremities naturally and easily. Strength 5/5 on foot dorsi and plantar flexion. No difficulty with maintaining straight leg raise against resistance in both legs. NEURO: No gross neuro deficits. Results & Data Vital Signs (Past 12 Hours) Vital Signs Temp Pulse Pulse Resp BP BP Pulse Ox 05/05/19 00:25 71 19 183/67 H 93 05/04/19 23:40 74 18 96 05/04/19 23:30 75 22 161/64 H 94 05/04/19 23:20 74 22 96 05/04/19 23:14 70 20 175/63 H 96 05/04/19 23:10 69 20 95 05/04/19 23:00 71 20 95 05/04/19 22:51 80 25 H 95 05/04/19 22:30 77 19 176/75 H 97 05/04/19 22:20 74 21 95 05/04/19 22:10 72 20 95 05/04/19 22:00 73 20 168/65 H 95 05/04/19 21:50 82 19 96 05/04/19 21:40 68 21 96 05/04/19 21:36 71 21 173/64 H 95 05/04/19 21:30 72 22 173/64 H 96 05/04/19 21:23 70 18 97 05/04/19 21:20 66 25 H 95 05/04/19 21:10 71 24 94 05/04/19 21:00 70 23 157/62 H 95 05/04/19 20:50 69 22 92 05/04/19 20:40 62 23 95 05/04/19 20:30 68 22 139/67 95 05/04/19 20:20 72 23 96 05/04/19 20:13 68 24 94 05/04/19 20:11 37.9 C H 71 71 20 154/57 H 154/57 H 89 L 05/04/19 20:09 68 24 154/57 H 94 Laboratory Results 05/04/19 05/04/19 05/04/19 Range/Units 22:35 21:30 21:30 WBC 9.10 (4.8-10.8) K/uL RBC 3.64 L (4.2-5.4) M/uL Hgb 11.0 L (12.0-16.0) g/dL Hct 32.8 L (37-47) % MCV 90.1 (80-100) fL MCH 30.2 (25-34) pg MCHC 33.5 (32-36) g/dL RDW Std Deviation 42.4 (36.4-46.3) fL RDW Coeff of Uriel 13.0 (11.5-14.5) % Plt Count 141 (130-400) K/uL MPV 9.4 (7.4-10.4) fL Immature Gran % (Auto) 0.1 % Neut % (Auto) 82.0 % Lymph % (Auto) 8.5 % [place] % (Auto) 8.9 % Eos % (Auto) 0.3 % Baso % (Auto) 0.2 % Immature Gran # (Auto) 0.01 (0.00-0.02) K/uL Neut # (Auto) 7.46 H (1.4-6.5) K/uL Lymph # (Auto) 0.77 L (1.2-3.4) K/uL [place] # (Auto) 0.81 H (0.11-0.59) K/uL Eos # (Auto) 0.03 (0-0.5) K/uL Baso # (Auto) 0.02 (0-0.2) K/uL Sodium 137 (136-145) mmol/L Potassium 3.9 (3.5-5.1) mmol/L Chloride 103 (98-107) mmol/L Carbon Dioxide 27 (21-32) mmol/L Anion Gap 7.0 (3-11) BUN 32 H (7-18) mg/dl Creatinine 1.30 H (0.6-1.2) mg/dl Est Cr Clr Drug Dosing 25.3 ml/min Est GFR ( Amer) 42.1 Est GFR (Non-Af Amer) 36.3 BUN/Creatinine Ratio 24.8 H (10-20) Glucose 134 H (70-99) mg/dl Calcium 9.1 (8.5-10.1) mg/dl Total Bilirubin 0.9 (0.2-1) mg/dl AST 28 (15-37) U/L ALT 22 (12-78) U/L Alkaline Phosphatase 60 (45-117) U/L Total Creatine Kinase 495 H (26-192) U/L Troponin I 0.020 (0-0.045) ng/ml NT-Pro-B Natriuret Pep 5961 H (0-1800) pg/ml Total Protein 6.8 (6.4-8.2) gm/dl Albumin 3.4 (3.4-5.0) gm/dl Globulin 3.4 (2.5-4.0) gm/dl Albumin/Globulin Ratio 1.0 (0.9-2) TSH 1.170 (0.300-4.500) uIu/ml Urine Color Yellow Urine Appearance Cloudy A (Clear) Urine pH 6.0 (4.5-7.5) Ur Specific [place] 1.014 (1.000-1.030) Urine Protein Trace H (Negative) Urine Glucose (UA) Negative (Negative) Urine Ketones Negative (Negative) Urine Blood 2+ H (Negative) Urine Nitrite Positive A (Negative) Urine Bilirubin Negative (Negative) Urine Urobilinogen Negative (Negative) Ur Leukocyte Esterase 3+ H (Negative) Urine WBC (Auto) >30 H (0-5) /hpf Urine RBC (Auto) 5-10 H (0-4) /hpf U Hyaline Cast (Auto) 0 (0-5) /lpf U Epithel Cells (Auto) 0-5 (0-5) /lpf Urine Bacteria (Auto) 2+ H (Negative) Medications Administered Ioversol (Optiray 320 100ml) 93 ml IV ONCE PRN PRN Reason: Interaction Checking Stop: 05/08/19 22:35 Last Admin: 05/04/19 22:36 Dose: 93 ml Documented by: [id number] Discontinued Medications Sodium Chloride (Nss 1000ml) 1,000 mls @ 999 mls/hr IV .Q1H1M [id number] Stop: 05/04/19 22:15 Last Infusion: 05/04/19 22:38 Dose: 0 mls/hr Documented by: [id number] Admin: 05/04/19 21:37 Dose: 999 mls/hr Documented by: [id number] Ceftriaxone Sodium (Rocephin) 2,000 mg in 70 mls @ 140 mls/hr IV NOW STA Stop: 05/04/19 23:26 Last Infusion: 05/04/19 23:45 Dose: 0 mls/hr Documented by: [id number] Admin: 05/04/19 23:13 Dose: 140 mls/hr Documented by: [id number] Levalbuterol HCl (Xopenex 1.25mg/3ml Neb) 1.25 mg NEB NOW STA Stop: 05/04/19 21:12 Last Admin: 05/04/19 21:22 Dose: 1.25 mg Documented by: [id number] Code Status & VTE Plan Code Status Full code VTE Prophylaxis Plan VTE Prophylaxis will be ordered: Yes Supervising Physician Co-Signing Physician Notes Attending addendum: I have physically seen this patient, have supervised the medical residents activities, and agree with the H&P unless as otherwise noted. Assessment and Plan: Resolved bilateral lower extremity generalized weakness- Sounds like more of a general weakness as opposed to neurologic event. UTI- Follow urine culture sensitivity. Continue ceftriaxone IV begun in the ED. Hypoxia- Likely combination of pulmonary fibrosis and overlying infection. Ceftriaxone IV and azithromycin IV. Remainder of orders and notations as noted. PG Care Time/CCT Total # of Minutes Spent Total Time Spent with Patient: Total time spent is greater than 50% in coordi nation of care (as documented) at patient's floor/unit and/or counseling patient: Resident Activity Tracking Resident Involvement: Resident Care Provided Care Provided: Adult Hospital Medicine
[2019-05-05] MEDS ORDERED: ONDANSETRON INJ 2 MG/ML 2 ML VIAL IV PRN (01:47)
[2019-05-05] MEDS ORDERED: ACETAMINOPHEN 500 MG TAB PO PRN (01:47)
[2019-05-05] MEDS: LACTATED RINGER'S 1,000 ML IV SCH ×2 (02:13→14:24)
[2019-05-05] MEDS ORDERED: AZITHROMYCIN 250 MG TAB PO ONE (05:17)
--- NOTE | 2019-05-05 05:23 | Progress Note ---
Date of Service May 05, 2019 As an interval update, received page that the patient had a short run of a junctional rhythm at 37 bpm. On the monitor she is currently in normal sinus rhythm at 70 bpm. She is also now febrile. Please see the overnight read for her CT chest. Multiple findings include diffuse opacities concerning for pneumonia vs chronic interstitial lung disease vs superimposed edema. Also some concerns about mediastinal and hilar lymphadenopathy along with distal esophageal wall thickening. Plan: Will add azithromycin daily (in addition to the current ceftriaxone) to cover for CAP. Mai Thapa, PGY3 Results & Data Vital Signs (Past 12 Hours) Vital Signs Temp Pulse Pulse Resp BP BP BP 05/05/19 03:07 38.5 C H 52 L 18 131/62 05/05/19 02:30 73 05/05/19 01:47 05/05/19 01:45 37.1 C 84 16 179/48 H 05/05/19 01:14 72 23 170/60 H 05/05/19 00:25 71 19 183/67 H 05/04/19 23:40 74 18 05/04/19 23:30 75 22 161/64 H 05/04/19 23:20 74 22 05/04/19 23:14 70 20 175/63 H 05/04/19 23:10 69 20 05/04/19 23:00 71 20 05/04/19 22:51 80 25 H 05/04/19 22:30 77 19 176/75 H 05/04/19 22:20 74 21 05/04/19 22:10 72 20 05/04/19 22:00 73 20 168/65 H 05/04/19 21:50 82 19 05/04/19 21:40 68 21 05/04/19 21:36 71 21 173/64 H 05/04/19 21:30 72 22 173/64 H 05/04/19 21:23 70 18 05/04/19 21:20 66 25 H 05/04/19 21:10 71 24 05/04/19 21:00 70 23 157/62 H 05/04/19 20:50 69 22 05/04/19 20:40 62 23 05/04/19 20:30 68 22 139/67 05/04/19 20:20 72 23 05/04/19 20:13 68 24 05/04/19 20:11 37.9 C H 71 71 20 154/57 H 154/57 H 05/04/19 20:09 68 24 154/57 H Pulse Ox Pulse Ox 05/05/19 03:07 95 05/05/19 02:30 05/05/19 01:47 95 05/05/19 01:45 95 05/05/19 01:14 95 05/05/19 00:25 93 05/04/19 23:40 96 05/04/19 23:30 94 05/04/19 23:20 96 05/04/19 23:14 96 05/04/19 23:10 95 05/04/19 23:00 95 05/04/19 22:51 95 05/04/19 22:30 97 05/04/19 22:20 95 05/04/19 22:10 95 05/04/19 22:00 95 05/04/19 21:50 96 05/04/19 21:40 96 05/04/19 21:36 95 05/04/19 21:30 96 05/04/19 21:23 97 05/04/19 21:20 95 05/04/19 21:10 94 05/04/19 21:00 95 05/04/19 20:50 92 05/04/19 20:40 95 05/04/19 20:30 95 05/04/19 20:20 96 05/04/19 20:13 94 05/04/19 20:11 89 L 05/04/19 20:09 94
--- NOTE | 2019-05-05 06:42 | CT Scan Report ---
CT chest wo con CLINICAL HISTORY: hypoxia.. ABNORMAL CHEST X-RAY COMPARISON STUDY: Chest x-ray dated 05/04/2019 CT DOSE: 378.76 mGy.cm TECHNIQUE: CT of the thorax was performed from the thoracic inlet to the lung bases. Images are revi ewed in the axial, sagittal, and coronal planes. IV contrast was not administered for this examinatio n. A dose lowering technique was utilized adhering to the principles of ALARA. FINDINGS: Thyroid: Imaged portions of the thyroid gland are normal in appearance. Thoracic aorta: There is dense calcification of the thoracic aorta. The ascending thoracic aorta leisa ures 35 mm the level of pulmonary artery. Heart: The heart is enlarged with coronary artery calcifications. There is trace pericardial fluid. T here is enlargement of the pulmonary artery suggesting pulmonary arterial hypertension. Lungs and pleural spaces: There is septal edema. There is no lobar consolidation. There are patchy no dular airspace opacities, likely atelectatic or sales representative electric service of focal edema. Mediastinum: There are multiple enlarged mediastinal lymph nodes. An index precarinal lymph node leisa ures 16 mm. Анна: Difficult to assess on a noncontrast study, but hilar lymph node enlargement is suspected Axilla: There is no evidence of pathologic axillary lymphadenopathy Upper abdomen: Extensive vascular calcification. There is distal esophageal wall thickening. Skeletal structures: There are no lytic or blastic osseous lesions. IMPRESSION: 1. Septal thickening with patchy groundglass nodular airspace opacities. The findings likely represen t interstitial pulmonary edema although interstitial pneumonitis could appear similar 2. Distal esophageal wall thickening 3. Mediastinal lymphadenopathy 4. Suspected pulmonary arterial hypertension Electronically signed by: Guanaco Rayo M.D. 05/05/2019 6:40 AM
[2019-05-05 07:36] LABS: Basophils # (auto) 0.02 K/uL (0-0.2); Basophils % (auto) 0.2 %; Eosinophils # (auto) 0.01 K/uL (0-0.5); Eosinophils % (auto) 0.1 %; Hematocrit (blood only) 30.3 % (37-47); Hemoglobin 10.2 g/dL (12.0-16.0); Immature Granulocytes # (auto) 0.01 K/uL (0.00-0.02); Immature Granulocytes % (auto) 0.1 %; Lymphocytes % (auto) 9.6 %; Mean Corpuscular Hgb Conc 33.7 g/dL (32-36); Mean Corpuscular Volume 89.9 fL (80-100); Mean Platelet Volume 9.9 fL (7.4-10.4); Monocytes # (auto) 1.45 K/uL (0.11-0.59); Monocytes % (auto) 15.5 %; Neutrophils # (auto) 6.98 K/uL (1.4-6.5); Neutrophils % (auto) 74.5 %; Platelet Count 149 K/uL (130-400); RDW Standard Deviation 42.8 fL (36.4-46.3); Red Blood Count 3.37 M/uL (4.2-5.4); White Blood Count 9.37 K/uL (4.8-10.8)
[2019-05-05 07:48] LABS: INR 1.1 (0.9-1.1); Prothrombin Time 10.9 Seconds (9.0-12.0)
[2019-05-05 08:18] LABS: BUN Creatinine Ratio 24.2 (10-20); Calcium 8.2 mg/dl (8.5-10.1); Creatinine Clr Calc Pharmacy 25.8 ml/min; Est GFR (African American) 53.9; Est GFR (Non-African American) 46.5; Potassium 3.6 mmol/L (3.5-5.1)
[2019-05-05] MEDS: ENOXAPARIN INJ 30 MG/0.3 ML SYR SQ SCH (08:51)
[2019-05-05] MEDS: CALCIUM 600MG + VIT D 400 IU TAB PO SCH (08:51)
[2019-05-05] MEDS: PENTOSAN POLYSULFATE SODIUM 100 MG CAP PO SCH (08:51)
[2019-05-05] MEDS: MIRABEGRON ER 25 MG TAB PO SCH (08:55)
[2019-05-05] MEDS: hydroCHLOROthiazide 25 MG TAB PO SCH (08:56)
[2019-05-05] MEDS: ASPIRIN 325 MG ECTAB PO SCH (08:56)
[2019-05-05] MEDS: ATORVASTATIN 40 MG TAB PO SCH (08:56)
[2019-05-05] MEDS: ATENOLOL 50 MG TABLET PO SCH (08:57)
--- NOTE | 2019-05-05 15:49 | History & Physical Bridge Note ---
Date of Service May 05, 2019 History & Physical Bridge Note Patient seen and examined today. Reports she feels completely better. Denies shortness of breath, cough, weakness, or other complaints. Wants to go home, though I would like PT/OT mi first.
[2019-05-05] MEDS ORDERED: TERAZOSIN HCL 5 MG CAP PO SCH (21:00)
--- NOTE | 2019-05-05 21:13 | Pulmonary Consultation ---
Date of Consultation May 05, 2019 Assessment & Plan (1) Hypoxia: Her hypoxia is likely related to some degree of interstitial and alveolar infiltrates which are of unclear origin. She does carry a diagnosis of grade 1 diastolic dysfunction and some valvular issues from an echo in 2006. She has been persistently hypertensive here in the hospital with systolic blood pressures in the 170s to 180s. She likely does have worsening diastolic dysfunction and her hypoxia may be related to acute on chronic diastolic heart failure. Recommend repeating echocardiogram and continued diuresis. (2) Bilateral leg weakness: Her leg weakness may be related to urinary tract infection. Continue Rocephin Present on Admission?: Yes (3) Acute UTI: (4) Diastolic CHF, acute on chronic: Ordered echo. Consider diuresis. Present on Admission?: Yes History of Present Illness Attending Physician: She does appear to have a mild urinary tract infection based on the UA.Joe Guallpa MD 89-year-old female who presented to the emergency department secondary to a fall that she had from the steps. She says that her found her after she lost consciousness on the stairs. She does not recall exactly what happened. She denies any significant shortness of breath. She denies any cough. No family was present at the bedside to offer collaborate history. She said she just felt weak on the stairs and then could not remember what happened. She says this has not happened in the past. She really denies any pulmonary symptoms. 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 She is a lifelong non-smoker. She has had no recent sick contacts. She has not traveled outside the state in the last year. She denies any pets at present. 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 She does not know of any new medications that she may have started. She was found to be mildly hypoxemic to 80% on room air in the emergency department. This prompted a CT chest which demonstrated diffuse bilateral opacities with some mild mediastinal adenopathy. Her BNP was elevated to 5961. She had a fever of up to 101.3 today at 3 AM. She did not have a leukocytosis. She does appear to have a mild UTI based on the UA. Her urine culture is growing gram-negative rods. IgM admission with no evidence of ischemia. Echo from 2006 with grade 1 diastolic dysfunction, mild AR, mild MR and TR. Could not find any PFTs in the chart. Allergies Allergy/AdvReac Type Severity Reaction Status Date / Time No Known Drug Allergies Allergy Unknown Verified 05/04/19 22:52 Home Medications Home Medications Medication Instructions Recorded Confirmed Type atorvastatin 80 mg tablet 80 mg PO DAILY #90 tab 02/18/19 05/04/19 Rx acetaminophen 500 mg capsule 500 mg PO UD PRN cap 03/02/19 05/04/19 History conjugated estrogens 0.625 mg/gram 1 applic PV .2-3 NIGHTS WEEK #1 gm 03/02/19 05/04/19 History vaginal cream aspirin 325 mg tablet 325 mg PO DAILY #30 tab 04/18/19 05/04/19 History atenolol 100 mg tablet 100 mg PO QAM tab 04/18/19 05/04/19 History calcium 600 mg-D3 800 unit-mag11 1 tab PO DAILY 04/18/19 05/04/19 History 50 rf-hego-buqodt-namita-s.borat tablet hydrochlorothiazide 12.5 mg tablet 12.5 mg PO QAM tab 04/18/19 05/04/19 History mirabegron ER 50 mg 50 mg PO DAILY #90 tab 04/18/19 05/04/19 History tablet,extended release 24 hr terazosin 10 mg capsule 10 mg PO HS cap 04/18/19 05/04/19 History pentosan polysulfate sodium 100 mg PO DAILY 05/04/19 05/04/19 History [Elmiron] Patient History Medical History Vitamin D deficiency (Chronic) PAD (peripheral artery disease) (Acute) Impaired fasting glucose (Chronic) Hypertension (Chronic) Hypercholesterolemia (Chronic) Chronic interstitial cystitis (Acute) Cerebral embolism (Acute) Carotid atherosclerosis (Chronic) CAD (coronary atherosclerotic disease) (Acute) Family History Other No significant family history Social History Preferred Language: Korean Communication Ability: Effective 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 Required: No Beliefs That Will Affect Care: None Current Living Situation: Spouse Current Living Situation Comment: [place] farm with spouse Other Information That Helps Us Care for You: No Feels Safe at Home: Yes Safety Concerns: Feels Safe At This Time Smoking Status: Never smoker Do You Dip or Chew Tobacco: No ; Second Hand Exposure: No ; Tobacco Cessation Education Requested by Patient: No Hx Alcohol Use: No Hx Substance Use: No Review of Systems Review of Systems: All systems reviewed & are unremarkable except as noted in HPI & below Physical Exam Physical Exam: General: Very pleasant lady laying in bed with a nasal cannula on. Does not appear to be in any distress. HEENT: EOMI. Neck: Soft, supple. Trachea midline. Respiratory: Bilateral crackles, no increased respiratory effort. Vascular: Mild systolic flow murmur, 2 out of 6. Gastrointestinal: Soft, nontender MSK: Moves all extremities well Neurologic: No focal deficits seen. Psychiatric: Normal mood and affect Lymphatics: No obvious lymphadenopathy Results & Data Vital Signs (Past 12 Hours) Vital Signs Temp Pulse Pulse Resp BP Pulse Ox 05/05/19 19:57 99.7 F H 70 18 182/71 H 92 05/05/19 18:15 94 05/05/19 18:05 86 L 05/05/19 16:09 62 05/05/19 15:40 98.1 F 67 20 161/64 H 90 05/05/19 11:21 98.4 F 56 L 18 178/85 H 94 Laboratory Results 05/05/19 06:43 05/05/19 06:[address] chest reviewed. Bilateral parenchymal infiltrates noted with some nodularity. PG Care Time/CCT Total # of Minutes Spent Total Time Spent with Patient: Total time spent is greater than 50% in coordination of care (as documented) at patient's floor/unit and/or counseling patient:
[2019-05-06] MEDS: ATORVASTATIN 40 MG TAB PO SCH (08:46)
[2019-05-06] MEDS: ATENOLOL 50 MG TABLET PO SCH (08:46)
[2019-05-06] MEDS: ASPIRIN 325 MG ECTAB PO SCH (08:47)
[2019-05-06] MEDS: CALCIUM 600MG + VIT D 400 IU TAB PO SCH (08:47)
[2019-05-06] MEDS: PENTOSAN POLYSULFATE SODIUM 100 MG CAP PO SCH (08:47)
[2019-05-06] MEDS: MIRABEGRON ER 25 MG TAB PO SCH (08:47)
[2019-05-06] MEDS: hydroCHLOROthiazide 25 MG TAB PO SCH (08:48)
[2019-05-06] MEDS ORDERED: AZITHROMYCIN 250 MG TAB PO SCH (09:00)
[2019-05-06] MEDS ORDERED: PREMARIN VAG CRM 14 APPLN/30 GM TUBE PV SCH (09:00)
[2019-05-06] MEDS: ENOXAPARIN INJ 30 MG/0.3 ML SYR SQ SCH (09:22)
[2019-05-06] MEDS ORDERED: cefTRIAXone SODIUM 1,000 MG in DEXTROSE 5% 50 ML IV SCH (23:00)
--- NOTE | 2019-05-07 16:17 | Discharge Summary ---
Date of Service May 07, 2019 Admission HPI Per Admitting Provider 89-year-old female presents with her and other family members this evening due to an episode of transient weakness. Patient states that she had a completely normal morning without any symptoms. Around dinnertime she acutely felt like her legs were weak and that she had some discomfort around her pelvis. Her family members went to check on her and noted that she was not able to stand, so they called EMS. Patient says she never fell down, felt dizzy, had a headache or lightheadedness, or had any difficulty with other motor function such as arm movement or speaking or swallowing. During this H&P, patient stated that she had a "charley horse" in her right upper leg but that she gets those frequently. By the end of the exam, this had resolved. At present, she says her leg weakness has completely resolved. She says she feels like she is back at her baseline, specifically denying any acute pains / weakness / discomfort anywhere. On review of systems, patient says that her mouth feels a little dry but that she does try to get enough fluids throughout the day. Recent fevers or feeling of illness, nausea or vomiting or diarrhea, or any difficulty breathing. When asked why she needs oxygen at present, she says she is unsure and that she has no history of any known pulmonary disease. 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 She denies any chest pain or shortness of breath at rest or with exertion, including walking upstairs. She has a known history of chronic interstitial cystitis for which she takes routine medications. She says her only complaint is that she will often have to get up to urinate 3-4 times per night but this is nothing new. She denies any dysuria, no hematuria, or present pelvic discomfort/pain. - Past medical history includes hypertension, hyperlipidemia, CAD, carotid atherosclerosis, vitamin D deficiency, lower extremity peripheral artery disease, chronic interstitial cystitis, cerebral embolism, arthritis, asymptomatic cholelithiasis. - Past surgical history includes (per record) aorto-coronary bypass. Patient states she also had vascular surgery to her left leg. - Social history includes never smoking. Denies alcohol use. Lives at home with her with family nearby. 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 Principal Diagnosis Possible UTI vs. mild pneumonia Discharge Exam Constitutional WD/WN, vitals as above Eyes EOM intact bilaterally; no conjunctival abnormality ENMT external ear and nose normal, oropharynx normal Neck trachea midline, no thyromegaly normal visual inspection Respiratory normal respiratory effort, lungs clear to auscultation no respiratory distress Cardiovascular RRR, no murmur, no edema Gastrointestinal (Abdomen) Inspection/Auscultation: abdomen normal to inspection; abdomen not distended Musculoskeletal no cyanosis or clubbing, extremities motor strength 5/5 Skin no rashes, warm and dry Neurologic moves all extremities and awake Psychiatric Orientation: alert, oriented to person and cooperative Discharge Data Allergies Allergy/AdvReac Type Severity Reaction Status Date / Time No Known Drug Allergies Allergy Unknown Verified 05/04/19 22:52 Consultations 05/04/19 23:04 ED Decision to Admit Stat 05/05/19 01:47 Consult Pulmonology Routine Ordered Studies 05/04/19 21:11 CT abd pelvis IV con only Stat CT head/brain wo con Stat 05/05/19 00:32 CT chest wo con Urgent Hospital Course (1) Bilateral leg weakness: Possibly due to mild pneumonia and/or mild UTI. Possibly a non-bacterial pneumonitis also. CT chest on 05/05 showed septal thickening with patchy groundglass nodular airspace opacities. This was thought to be edema vs. pneumonitis. - Started on ceftriaxone -> Switched to Keflex on discharge. - [place] totally fine after 1 day of abx. Total of 3 more days. (2) Hypoxia: Was mildly hypoxemia (high 80s% to low 90%s.). Was able to get off O2 by discharge even with ambulation. Never reported any shortness of breath with it. (3) Anemia: Admit hemoglobin 11.0. Only comparison is 12.6 earlier in the month. No reports of bleeding. - Down to 10.2 on discharge. Possibly someone dilutional from IV fluids. No bleeding at all while inpatient. (4) Elevated serum creatinine: Admit creatinine 1.3, BUN 32. Only comparison 1.2 earlier in the month. Perhaps a bit pre-renal. Provided some IVF in the ED. - Cr down to 1.06 on discharge after IV fluids - Follow up with BMP in 1-2 weeks. (5) Diverticulosis: Incidentally seen on CT a/p. (6) Gallstones: (7) Hypertension: (8) Hypercholesterolemia: (9) CAD (coronary atherosclerotic disease): (10) Carotid atherosclerosis: (11) PAD (peripheral artery disease): (12) Impaired fasting glucose: (13) Vitamin D deficiency: (14) Chronic interstitial cystitis: Total Time Total Time Spent Total Time Spent (In Minutes): 45 Total Time Includes: Examination of the Patient and Communication With Other Providers Discharge Plan Discharge Items Patient Disposition: Home - Self-Care Reason For Visit: TRANSIENT LEG WEAKNESS, HYPOXIA Discharge Diagnosis: Mild pneumonia and urinary tract infection Discharge Goals: Decrease discomfort, Improve function and Therapeutic intervention Activity: Resume your previous activity Exercise/Sports: Gradually increase as tolerated Non-emergency contact: Primary Care Provider Call non-emergency contact if: your symptoms worsen and your temperature is above 101 Follow-up/Referrals: Milli Pozo MD [Primary Care Provider] - 05/13/19 11:30 am (Please, follow up at [facility] with Dr. Pozo on ThursdayMay 13 at 11:30 am. *If you need to change this appointment, call the office at [phone].) Diet: Regular Addtl Provider Instructions: Ms. Aponte, You were admitted with leg weakness that passed quite quickly. This was probably related to a small pneumonia and a UTI that you have. We started you on antibioics, and you are feeling great. We will discharge you to home with a few more days of antibiotics. Please come back to the hospital if you have any shortness of breath, any lightheadedness, any loss of consciousness, or any other concerning symptoms. Please follow up with your PCP next week. Prescriptions: New cephalexin 250 mg capsule 250 mg PO Q12H Qty: 7 RF: 0 Continued atorvastatin 80 mg tablet 80 mg PO DAILY Qty: 90 RF: 1 acetaminophen 500 mg capsule 500 mg PO UD PRN (Reason: Pain) RF: 0 conjugated estrogens 0.625 mg/gram cream 1 applic PV .2-3 NIGHTS WEEK Qty: 1 RF: 0 aspirin 325 mg tablet 325 mg PO DAILY Qty: 30 RF: 0 atenolol 100 mg tablet 100 mg PO QAM RF: 0 hydrochlorothiazide 12.5 mg tablet 12.5 mg PO QAM RF: 0 mirabegron 50 mg tablet extended release 24 hr 50 mg PO DAILY Qty: 90 RF: 0 terazosin 10 mg capsule 10 mg PO HS RF: 0 Caltrate 600-D Plus Minerals 600 mg calcium- 800 unit-50 mg tablet 1 tab PO DAILY RF: 0 Elmiron 100 mg Capsule 100 mg PO DAILY RF: 0 Stand-Alone Forms: [facility] Discharge Orders: Discharge Order (Routine); Ordered 05/06/19 Ordered By: Joe Guallpa Admission Data Admit Date/Time: 05/05/19 00:45 Attending Provider: Joe Guallpa Admit Provider: Haroon Thapa Primary Care Provider: Milli Pozo Other Providers: Bishnu Ward ; Joe Guallpa Service: Telemetry Medical Other Interventions: Discharge Summary Assessment (RN) Last Done: 05/06/19 13:24 DC Date/Time DO NOT enter until pt leaves facility: 05/06/19 14:19
== END 2019-05-06 14:19 | disposition home or self-care (01) | DRG 689 ==
LOC: ED 20:03 → SUATTDRO 05-05 00:45 → 2N 05-05 00:45